=== PATIENT | male | born 1940 | race Caucasian/White ===

== ENCOUNTER 2017-03-21 16:24 | Emergency (ER) | payer MEDICARE ==
--- NOTE | 2017-03-21 17:16 | ER NURSING DOCUMENTATION ---
Nurse's Notes [facility] Name:Victor Manuel Guerrero Age:76 yrs Sex:Male :1940 Arrival Date:03/21/2017 Time:16:24 Bed2 Private MD:Uday Alvarenga Diagnosis:Dental pain Presentation: 03/21 16:31 Acuity: ELVIE 4 sj 16:34 Presenting complaint: Patient states: C/O INFECTION TO RIGHT LOWER MOLAR 2 WEEKS AGO. lc USED H202 AND FELT IT CLEARED UP. SINCE YESTERDAY PAIN REFURNED, NO FEVER, HX OF RECENT HEART VALVE REPLACEMENT. Transition of care: Home. Notified ED Physician of patient's arrival and CC. 16:34 Method Of Arrival: Private Vehicle Triage Assessment: 16:40 General: Appears in no apparent distress, Behavior is cooperative. Pain: Complains of lc pain in RIGHT LOWER DRAWER Quality of pain is described as throbbing. Neuro: Level of Consciousness is awake, alert, Oriented to person, place, time, event. Respiratory: Airway is patent Respiratory effort is even, unlabored. Derm: Skin is pink, warm & dry. Historical: - Allergies: No known drug Allergies; - Home Meds: 1. Miralax Oral 2. Lantus Sub-Q 3. Coreg Oral 4. Klonopin Oral 5. Effexor Oral 6. Lasix Oral 7. Digoxin Oral - PMHx: SEIZURES; DEPRESSION; kidney disease; pulmonary HTN; CHF; DIABETES - IDDM; - PSHx: HEART VALVE; - Tetanus: > 10 years. - Ebola Screening: : Patient denies travel to an Ebola-affected area in the 21 days before illness onset. No symptoms or risks identified at this time. . - Immunization history: Flu Vaccine >1 year. - Social history: Smoking status: Patient states was never smoker of tobacco. Screenin:43 Infectious Disease Risk None. Abuse screen: Denies threats or abuse. Denies injuries lc from another. Nutritional screening: No deficits noted. Assessment: 16:43 See Triage Assessment done by same RN. Vital Signs: 16:42 BP 150 / 77; Pulse 76; Resp 18; Temp 98.2; Pulse Ox 92% on R/A; Weight 74.84 kg; Height lc 5 ft. 10 in. (177.80 cm); Pain 4/10; 16:42 Body Mass Index 23.67 (74.84 kg, 177.80 cm) ED Course: 16:25 Patient arrived in ED. arc 16:26 Uday Alvarenga MD is Private Physician. arc 16:29 Moisés Paul MD is Attending Physician. tl1 16:31 Triage completed. sj 16:34 Sruthi Guillaume, RN is Primary Nurse. lc 16:43 Valuables Remains with patient Patient has correct armband on for positive lc identification. Bed in low position. Call light in reach. Adult w/ patient. 16:58 Zeb Naranjo DDS is Referral Physician. tl1 Administered Medications: No medications were administered Outcome: 16:59 Discharge ordered by MD. tl1 17:15 Discharged to home ambulatory, with significant other. 17:15 Condition: stable 17:15 Discharge Assessment: Patient awake, alert and oriented x 3. No cognitive and/or functional deficits noted. Patient verbalized understanding of disposition instructions. 17:15 Discharge instructions given to patient, significant other, Instructed on discharge instructions, follow up and referral plans. medication usage, Demonstrated understanding of instructions, medications, Prescriptions given X 3. 17:15 Patient left the ED. Signatures: Sruthi Guillaume, RN RN Moisés Paul MD MD tl1 Geoff, Riya, [facility] Ashlie Chacko Carmela Mckoy
--- NOTE | 2017-03-21 17:16 | ER PHYSICIAN DOCUMENTATION ---
Physician Documentation [facility] Name:Victor Manuel Guerrero Age:76 yrs Sex:Male :1940 Arrival Date:03/21/2017 Time:16:24 Bed2 Private MD:Uday Alvarenga ED, Tom Disposition: 03/23 10:40 Chart complete. tl1 Disposition: 03/21/17 16:59 Discharged to Home/Self Care. Impression: Dental pain. - Condition is Good. - Discharge Instructions: DENTAL PAIN. - Prescriptions for penicillin V potassium 500 mg Oral tablet - take 1 tablet by ORAL route 4 times per day for 10 days; 40 tablet. Percocet 7.5- 325 mg Oral Tablet - take 1 tablet by ORAL route every 6 hours As needed; 15 tablet. Zofran 4 mg Oral Tablet - take 1-2 tablet by ORAL route every 4-6 hours As needed; 10 tablet. - Medical Reconciliation form form. - Follow up: Zeb Naranjo DDS; When: 1 - 2 days; Reason: Recheck today's complaints, Continuance of care. - Problem is new. - Symptoms are unchanged. HPI: 03/21 16:30 This 76 yrs old Male presents to ER with complaints of Jaw Pain. tl1 16:30 The patient presents with pain, that is acute. The problem is located in the lower tl1 right second molar. Onset: The symptom(s)/episode began/occurred gradually, 3 day(s) ago. Duration: The symptoms are continuous. Modifying factors: the symptoms are aggravated by chewing, cold fluids, hot fluids. Associated signs and symptoms: Pertinent negatives: chills, fever. Severity of symptoms: At their worst the symptoms were moderate, in the emergency department the symptoms are unchanged. Historical: - Allergies: No known drug Allergies; - Home Meds: 1. Miralax Oral 2. Lantus Sub-Q 3. Coreg Oral 4. Klonopin Oral 5. Effexor Oral 6. Lasix Oral 7. Digoxin Oral - PMHx: SEIZURES; DEPRESSION; kidney disease; pulmonary HTN; CHF; DIABETES - IDDM; - PSHx: HEART VALVE; - Tetanus: > 10 years. - Ebola Screening: : Patient denies travel to an Ebola-affected area in the 21 days before illness onset. No symptoms or risks identified at this time. . - Immunization history: Flu Vaccine >1 year. - Social history: Smoking status: Patient states was never smoker of tobacco. ROS: 16:30 ENT: Positive for dental pain. tl1 16:30 All other systems are negative. Exam: 16:30 Constitutional: This is a well developed, well nourished patient who is awake, alert, tl1 and in no acute distress. 16:30 Head/face: Exam is negative for acute changes. 16:30 ENT: Mouth: no acute changes, Dental exam: dental caries, that is severe, pain, that is moderate, specifically in the lower right second molar (#31). 16:30 Cardiovascular: Rate: normal. 16:30 Respiratory: Respirations: normal. 16:30 Skin: Exam negative for acute changes. 16:30 Neuro: Exam negative for acute changes. Vital Signs: 16:42 BP 150 / 77; Pulse 76; Resp 18; Temp 98.2; Pulse Ox 92% on R/A; Weight 74.84 kg; Height lc 5 ft. 10 in. (177.80 cm); Pain 4/10; 16:42 Body Mass Index 23.67 (74.84 kg, 177.80 cm) lc MDM: 16:29 Patient medically screened. tl1 16:29 Patient medically screened. tl1 16:30 Data reviewed: vital signs, nurses notes, and as a result, I will discharge patient. tl1 Counseling: I had a detailed discussion with the patient and/or guardian regarding: the historical points, exam findings, and any diagnostic results supporting the discharge/admit diagnosis, the need for outpatient follow up, a dentist, to return to the emergency department if symptoms worsen or persist or if there are any questions or concerns that arise at home. Dispensed Medications: No medications were administered Signatures: Sruthi Guillaume, RN RN Moisés Paul MD MD tl1 Ashlie Chacko
== END 2017-03-21 17:16 | disposition home or self-care (01) ==
LOC: ER 16:24
DX: K08.89 Other specified disorders of teeth and supporting structures (principal); K02.9 Dental caries, unspecified; I10 Essential (primary) hypertension; E11.9 Type 2 diabetes mellitus without complications; Z79.899 Other long term (current) drug therapy; Z79.4 Long term (current) use of insulin
CPT/HCPCS: 99282